=== PATIENT | female | born 1970 | race African-American/Black ===

== ENCOUNTER 2017-06-29 12:03 | Emergency (ER) | payer OTHER ==
[~2017-06-29] VITALS: Ht 167.6 cm; Wt 88.2 kg
[2017-06-29] MEDS ORDERED: SODIUM CHLORIDE 0.9% 1,000 ML IV ONE ×2 (14:47→15:00)
[2017-06-29 14:57] LABS: BASOPHILS % 0.6 % (0.0-2.0); EOSINOPHILS % 1.6 % (0.0-5.0); HEMATOCRIT. 40.9 % (36.0-48.0); HEMOGLOBIN. 13.8 g/dL (12.0-16.0); LYMPHOCYTES % 42.3 % (20.0-50.0); MEAN CORPUSCULAR HEMOGLOBIN 27.2 pg (28.0-32.0); MEAN CORPUSCULAR VOLUME 80.5 fL (81.0-99.0); MEAN PLATELET VOLUME 10.2 fl (7.4-10.4); MONOCYTES % 5.5 % (2.0-8.0); PLATELET 275 x1000/uL (130-400); RED BLOOD CELL COUNT 5.08 mill/uL (4.2-5.4); RED CELL DISTRIBUTION WIDTH 12.4 % (11.6-14.6)
[2017-06-29] MEDS ORDERED: INSULIN REGULAR (HUMULIN R) 300UNITS/3ML SUBCUT ONE (15:00)
[2017-06-29 15:09] LABS: CARBON DIOXIDE 28 mEq/L (21-32); CHLORIDE 100 mEq/L (98-107)
[2017-06-29 15:12] LABS: BETA HYDROXYBUTYRATE 0.5 mMol/L (0.0-0.3)
[2017-06-29 17:21] VITALS: BP 109/68
== END 2017-06-29 17:30 | disposition home or self-care (01) ==
LOC: ER 13:37
DX: E11.65 Type 2 diabetes mellitus with hyperglycemia (principal); E86.0 Dehydration; Z79.4 Long term (current) use of insulin; H53.8 Other visual disturbances
CPT/HCPCS: 36415; 80053; 81025; 82010; 82962; 85025; 96360; 96361; 96372; 99285; J1815; J7030; Z7610

== ENCOUNTER 2018-02-13 02:37 | Emergency (ER) | payer MEDICAID, OTHER ==
[~2018-02-13] VITALS: Ht 167.6 cm; Wt 91.9 kg
[2018-02-13 02:52] VITALS: BP 136/87
== END 2018-02-13 08:02 | disposition left against medical advice (07) ==
LOC: ER 02:37
DX: Z53.21 Procedure and treatment not carried out due to patient leaving prior to being seen by health care provider (principal); E78.00 Pure hypercholesterolemia, unspecified
CPT/HCPCS: 82962